=== PATIENT | male | born 1935 | race Caucasian/White ===

== ENCOUNTER → 2017-10-08 | Outpatient (CLI) | payer MEDICARE, OTHER ==
[~2017-10-08] MED LIST: ASPIRIN 81MG TA81 MG PO; ATENOLOL25 MG PO; BACTRIM DS 8001 TAB PO; CHO PO; GEMFIBROZIL600 M1 PO; GLUCOSAMINE CHO1 CAP PO; GLUCOSAMINE PO; KEFLEX 500MG.500 MG PO; LISINOPRIL 5MG T5 MG PO; SIMVASTATIN40 MG PO; TYLENOL W/CODEI1 TA2 PO; VITAMIN E 400400 IU PO
[2017-10-08 14:53] LABS: BUN 17 mg/dL (7-18)
[2017-10-08 14:58] LABS: GFR (ESTIMATED) 109 ML/MIN (>60)
[2017-10-09 10:40] LABS: Creatinine, Urine 103.2 mg/dL (Not Estab.); Microalbumin, Urine 5.2 ug/mL (Not Estab.)
== END ==
LOC: LAB 12:51
PROVIDERS: Internal Medicine Adolescent Medicine
DX: E11.9 Type 2 diabetes mellitus without complications (principal); I50.22 Chronic systolic (congestive) heart failure